=== PATIENT | female | born 1985 | race Hispanic/Latino ===

== ENCOUNTER 2017-05-12 14:50 | Emergency (ER) | payer SELFPAY ==
[2017-05-12 16:45] LABS: WBC/HPF 21-50 HPF (0-3)
[2017-05-12 16:46] LABS: Bacteria/HPF 3+ HPF (None Seen)
== END 2017-05-12 18:07 | disposition home or self-care (01) ==
LOC: SCSER 14:50
DX: R82.71 Bacteriuria (principal); R10.31 Right lower quadrant pain; R10.32 Left lower quadrant pain
CPT/HCPCS: 81001; 81025; 87077; 87086; 87186; 99284

== ENCOUNTER 2017-10-20 08:20 | Outpatient (CLI) | payer OTHER ==
--- NOTE | 2017-10-20 10:49 | ULT ---
ABDOMINAL ULTRASOUND: Date: 10/20/17 HISTORY: Diffuse abdominal pain and nausea. FINDINGS: The liver demonstrates homogeneous echotexture without focal mass or intrahepatic ductal dilatation. No gallstones, gallbladder wall thickening, or pericholecystic fluid is seen. There is a small amount of sludge in the gallbladder. The tail of the pancreas is obscured. The visualized portions of the p ancreas, aorta, and IVC are unremarkable. The spleen and pancreas are unremarkable. No free fluid is seen. IMPRESSION: Small amount of sludge in the gallbladder. POS: [facility]
== END 2017-10-20 08:21 | disposition home or self-care (01) ==
LOC: SCSULT 08:20
PROVIDERS: ATTEND Internal Medicine Gastroenterology
DX: R10.9 Unspecified abdominal pain (principal); K82.8 Other specified diseases of gallbladder
CPT/HCPCS: 76700

== ENCOUNTER 2018-01-19 18:16 | Emergency (ER) | payer OTHER ==
[2018-01-19 19:14] LABS: #Basophils 0.1 thou/uL (0.0-0.2); #Eosinphils 0.1 thou/uL (0.0-0.7); #Lymphocytes 1.9 thou/uL (1.20-3.40); #Monocytes 0.3 thou/uL (0.11-0.59); #Neutrophils 3.1 thou/uL (1.40-6.50); %Eosinophils 2.7 % (0.0-10.0); %Lymphocytes 35.1 % (21.0-51.0); %Monocytes 4.9 % (0.0-10.0); %Neutrophils 56.2 % (42.0-75.0); Mean Corpuscular HGB CONC 34.6 g/dL (32.0-36.0); Mean Corpuscular Volume 89.8 fL (78.0-98.0); Mean Platelet Volume 7.4 fL (7.4-10.4); Platelet Count 238 thou/uL (130-400); RBC Distribution Width 10.9 % (11.5-14.5); White Blood Cell (WBC) Count 5.5 thou/uL (4.8-10.8)
[2018-01-19 19:18] LABS: Bilirubin Negative (Negative); Blood, Urine Negative (Negative); Clarity Clear (Clear); Glucose, Urine (Dipstick) Negative (Negative); Leukocyte Negative (Negative); Nitrite Negative (Negative); Pregnancy Test - Urine (BHCG) Negative (Negative); Pregu Control Background? CLEAR/WHITE (CLR/WHITE); Pregu Control Bar Appear? YES (CONTROL BAR); Protein, Urine (Dipstick) Negative (Neg-Trace); Urobilinogen 0.2 mg/dL (0.2-1.0); pH, Urine 7.5 (5.0-9.0)
[2018-01-19 19:32] LABS: ALT (SGPT) 12 U/L (8-55); AST (SGOT) 20 U/L (5-34); Albumin 4.4 g/dL (3.5-5.0); Alkaline Phosphatase 46 U/L (40-150); Anion Gap 13 mmol/L (10-20); BUN (Urea Nitrogen) 12 mg/dL (7.0-18.7); Bilirubin, Direct 0.2 mg/dL (0.1-0.3); Bilirubin, Total 0.5 mg/dL (0.2-1.2); Calc. Creatinine Clearance 0 mL/min (70-130); Calcium 9.4 mg/dL (7.8-10.44); Carbon Dioxide 27 mmol/L (22-29); Chloride 104 mmol/L (98-107); Estimated GFR-MDRD Greater than 90; Glucose 88 mg/dL (70-105); Lipase 21 U/L (8-78); Protein, Total 7.7 g/dL (6.0-8.3); Sodium 140 mmol/L (136-145)
--- NOTE | 2018-01-19 20:40 | CT ---
CT ABDOMEN AND PELVIS WITH IV CONTRAST 01/19/18 HISTORY: Abdominal pain. FINDINGS: Comparison is made with exam of 08/30/10. The lung bases are clear. No free air, free fluid or lymphadenopathy is seen in the abdomen or pelvis . No calcified gallstones are identified. There is a 7 mm low density lesion in the anteromedial aspe ct of the dome of the liver. Another 5 mm focal low density is seen in the right lobe of the liver. Statistically these lesions are likely benign. The spleen, pancreas, adrenal glands and kidneys are n ormal. The uterus and ovaries are present. A normal appearing appendix is noted. No acute osseous abn ormalities are seen. There is fecal material in the colon. A small hiatal hernia is present. IMPRESSION: No CT evidence of acute process. POS: [facility]
== END 2018-01-19 20:30 | disposition home or self-care (01) ==
LOC: SCSER 18:16
DX: R10.31 Right lower quadrant pain (principal)
CPT/HCPCS: 74177; 80048; 80076; 81003; 81025; 83690; 85025; 96360

== ENCOUNTER 2018-04-07 09:25 | Day surgery (SDC) | payer OTHER ==
[2018-04-06 16:43] VITALS: BMI 30.2
[2018-04-07] MEDS ORDERED: Lidocaine 1% PF 5 ML VIAL ONE (17:00)
[2018-04-07] MEDS ORDERED: PROPOFOL 200 MG/20 ML VIAL ONE (17:00)
--- NOTE | 2018-04-07 23:03 | OP ---
DATE OF SURGERY: 04/07/2018 OPERATIVE PROCEDURE: Esophagogastroduodenoscopy with biopsy. PREOPERATIVE DIAGNOSES: Abdominal pain and nausea. POSTOPERATIVE DIAGNOSIS: Normal esophagogastroduodenoscopy. PROCEDURE NOTE: The patient was placed on her left lateral position and was given sedation by Anesthesia Department. A Pentax videogastroscope under direct vision passed down the oropharynx, past the GE junction, into the stomach , and subsequently, into descending duodenum. The vocal cords appeared healthy. The esophageal mucosa appeared normal throughout the esophagus. The GE junction, no lesions seen. The fundus, cardia, gastric body, gastric antrum , pyloric channel, no pathology seen. The duodenal bulb, descending duodenum, no pathology seen. The stomach was decompressed and scope removed. DISCHARGE PLANNING: This is a 32-year-old [place] female who came in for an EGD for abdominal pain, nausea, etc. The patient had abdominal sonogram few months ago, which revealed a small amount of biliary sludge. The EGD showed no pathology. DISCHARGE RECOMMENDATIONS: 1. Trial of Bentyl 10 mg twice daily.. 2. The patient will be referred to General Surgery for an opinion about whether she needs a cholecystectomy, because of biliary sludge. [facility]
== END 2018-04-07 11:52 | disposition home or self-care (01) ==
LOC: SDC 09:25
PROVIDERS: ATTEND Internal Medicine Gastroenterology
PROC: 0DJ08ZZ Inspection of Upper Intestinal Tract, Via Natural or Artificial Opening Endoscopic (ICD-10-PCS; principal; 2018-04-07)
DX: R10.9 Unspecified abdominal pain (principal); R11.0 Nausea; K83.8 Other specified diseases of biliary tract; Z79.899 Other long term (current) drug therapy
CPT/HCPCS: J2001; J2704

== ENCOUNTER 2018-05-18 13:45 | Outpatient (CLI) | payer OTHER ==
[2018-05-18 14:30] LABS: #Eosinphils 0.2 thou/uL (0.0-0.7); #Lymphocytes 1.3 thou/uL (1.20-3.40); #Monocytes 0.3 thou/uL (0.11-0.59); #Neutrophils 4.6 thou/uL (1.40-6.50); %Basophils 0.5 % (0.0-1.0); %Eosinophils 2.4 % (0.0-10.0); %Lymphocytes 20.3 % (21.0-51.0); %Monocytes 4.6 % (0.0-10.0); %Neutrophils 72.2 % (42.0-75.0); Hemoglobin 12.8 g/dL (12.0-16.0); Mean Corpuscular HGB CONC 34.3 g/dL (32.0-36.0); Mean Corpuscular Volume 93.2 fL (78.0-98.0); Mean Platelet Volume 7.6 fL (7.4-10.4); Platelet Count 265 thou/uL (130-400); RBC Distribution Width 10.9 % (11.5-14.5); Red Blood Cell (RBC) Count 3.98 mill/uL (4.20-5.40); White Blood Cell (WBC) Count 6.3 thou/uL (4.8-10.8)
[2018-05-18 14:37] LABS: BHCG - Serum Negative (NEGATIVE); Pregs Control Background? CLEAR/WHITE (CLR/WHITE); Pregs Control Bar Appear? YES (CONTROL BAR)
[2018-05-18 14:56] LABS: ALT (SGPT) 9 U/L (8-55); AST (SGOT) 17 U/L (5-34); Alkaline Phosphatase 56 U/L (40-150); Anion Gap 10 mmol/L (10-20); BUN (Urea Nitrogen) 16 mg/dL (7.0-18.7); Bilirubin, Direct 0.2 mg/dL (0.1-0.3); Bilirubin, Total 0.4 mg/dL (0.2-1.2); Calc. Creatinine Clearance 0 mL/min (70-130); Calcium 8.9 mg/dL (7.8-10.44); Carbon Dioxide 24 mmol/L (22-29); Chloride 107 mmol/L (98-107); Estimated GFR-MDRD Greater than 90; Globulin 2.9 g/dL (2.4-3.5); Glucose 92 mg/dL (70-105); Potassium 3.9 mmol/L (3.5-5.1); Protein, Total 6.9 g/dL (6.0-8.3); Sodium 137 mmol/L (136-145)
== END 2018-05-18 13:46 | disposition home or self-care (01) ==
LOC: LABBT 13:45
PROVIDERS: ATTEND Surgery
DX: Z01.812 Encounter for preprocedural laboratory examination (principal); K81.1 Chronic cholecystitis
CPT/HCPCS: 80053; 80076; 84703; 85025

== ENCOUNTER 2018-05-20 05:57 | Day surgery (SDC) | payer OTHER ==
[2018-05-18 14:29] VITALS: BMI 28.3
[2018-05-20] MEDS ORDERED: cefOXitin 2 GM in Sodium Chloride 0.9% 100 ML IVPB SCH (06:30)
[2018-05-20] MEDS ORDERED: Bupivacaine/Epinephrine 0.25% 30 ML VIAL ONE (06:41)
[2018-05-20] MEDS ORDERED: Midazolam HCl 2 mg/2 ml Vial ONE (06:56)
[2018-05-20] MEDS ORDERED: CEFAZOLIN 2 GM/50 ML BAG ONE (06:56)
[2018-05-20] MEDS ORDERED: Scopolamine 1.5 mg/72 hour Patch ONE (07:05)
[2018-05-20] MEDS ORDERED: Fentanyl 100 MCG/2 ML VIAL ONE ×4 (07:19→09:09)
[2018-05-20] MEDS ORDERED: Promethazine HCl 25 MG/ML VIAL ONE (08:31)
[2018-05-20] MEDS ORDERED: SUGAMMADEX SODIUM 500 MG/5 ML VIAL ONE (08:37)
[2018-05-20] MEDS ORDERED: HYDROcodone/Acetaminophen 5/325 mg Tablet ONE (10:20)
[2018-05-20] MEDS ORDERED: Morphine 2 MG/ML SYRINGE ONE (10:35)
[2018-05-20] MEDS ORDERED: Ondansetron PF 4 MG/2 ML Vial ONE (11:05)
[2018-05-20] MEDS ORDERED: Lidocaine 1% PF 5 ML VIAL ONE (11:05)
[2018-05-20] MEDS ORDERED: Dexamethasone 20 MG/5 ML VIAL ONE (11:05)
[2018-05-20] MEDS ORDERED: Metoclopramide HCl 10 MG/2 ML VIAL ONE (11:05)
[2018-05-20] MEDS ORDERED: Ketorolac Tromethamine 30 MG/ML VIAL ONE (11:05)
[2018-05-20] MEDS ORDERED: PROPOFOL 200 MG/20 ML VIAL ONE (11:05)
[2018-05-20] MEDS ORDERED: Glycopyrrolate 0.2 MG/ML 5 ML SYRINGE ONE (11:05)
--- NOTE | 2018-05-20 14:47 | OP ---
DATE OF PROCEDURE: 05/20/2018 PREOPERATIVE DIAGNOSIS: Chronic cholecystitis. PROCEDURE PERFORMED: Laparoscopic cholecystectomy. INDICATIONS FOR PROCEDURE: This is a 32-year-old female, who has been having severe episodic right upper quadrant pain radiating to back, worse after eating. She had an extensive Gastroenterology workup that was negative. FINDINGS: She had a very long small caliber cystic duct. DESCRIPTION OF PROCEDURE: After informed consent was obtained, the patient was taken to the operating room, given general endotracheal anesthesia, and placed in the supine position. Abdomen was prepped and draped in the usual fashion. Local anesthesia was infiltrated subcutaneously and deep, and a subumbilical incision was performed. Subcu was divided sharply, the fascia was grasped, and 2 stay sutures of 0 Vicryl were placed midline. Midline incised. Digital palpation revealed no local adhesions. A blunt 10 to 12 mm trocar inserted. Pneumoperitoneum was carried to a pressure of 15 mmHg. A 0-degree laparoscope was inserted under direct vision. Three 5-mm ports were placed subcostally. Gallbladder grasped, advanced superiorly, peritoneum lysed distally to expose the cystic duct and cystic artery in critical view. The duct and artery were triply ligated and divided. The gallbladder was removed and utilizing electrocautery, removed from the abdomen through the umbilical port. Hemostasis assured. Trocars and retractors were removed. Fascia was closed with interrupted 0 Vicryl suture. The skin was closed with interrupted 4-0 Rapide. Dermabond was applied. The patient tolerated the procedure well and transferred to Recovery in good condition. Sponge and needle counts were verified and correct x2. Job ID: [id number]
== END 2018-05-20 11:20 | disposition home or self-care (01) ==
LOC: SDC 05:57
PROVIDERS: ATTEND Surgery
PROC: 0FT44ZZ Resection of Gallbladder, Percutaneous Endoscopic Approach (ICD-10-PCS; principal; 2018-05-20)
DX: K81.1 Chronic cholecystitis (principal); Z79.899 Other long term (current) drug therapy
CPT/HCPCS: 88304; 96374; 96375; 96376; J0694; J1100; J1885; J2001; J2250; J2270; J2405; J2550; J2704; J2765; J3010; J7050

== ENCOUNTER 2021-04-30 10:08 | Emergency (ER) | payer OTHER ==
[2021-04-30] MEDS ORDERED: Iopamidol-370 76% 500 ML 1 ML ONE (10:32)
[2021-04-30 11:04] LABS: #Eosinphils 0.1 thou/uL (0.0-0.7); #Lymphocytes 1.7 thou/uL (1.20-3.40); #Monocytes 0.3 thou/uL (0.11-0.59); #Neutrophils 2.8 thou/uL (1.40-6.50); %Eosinophils 2.6 % (0.0-10.0); %Lymphocytes 34.5 % (21.0-51.0); %Monocytes 6.7 % (0.0-10.0); %Neutrophils 56.2 % (42.0-75.0); Hemoglobin 13.9 g/dL (12.0-16.0); Mean Corpuscular Hemoglobin 32.1 pg (27.0-31.0); Mean Corpuscular Volume 94.2 fL (78.0-98.0); Mean Platelet Volume 7.4 fL (7.4-10.4); Platelet Count 270 thou/uL (130-400); RBC Distribution Width 11.2 % (11.5-14.5); Red Blood Cell (RBC) Count 4.34 mill/uL (4.20-5.40)
[2021-04-30] MEDS ORDERED: Ondansetron PF 4 MG/2 ML Vial ONE (11:08)
[2021-04-30] MEDS ORDERED: Ketorolac Tromethamine 30 MG/ML VIAL ONE (11:08)
[2021-04-30 11:17] LABS: BHCG - Serum Negative (NEGATIVE); Pregs Control Background? CLEAR/WHITE (CLR/WHITE); Pregs Control Bar Appear? YES (CONTROL BAR)
[2021-04-30 11:34] LABS: Bilirubin Negative (Negative); Blood, Urine Negative (Negative); Clarity Clear (Clear); Glucose, Urine (Dipstick) Normal (Negative); Ketone, Urine Negative (Negative); Leukocyte Negative Leu/uL (Negative); Nitrite Negative (Negative); Protein, Urine (Dipstick) Negative (Neg-Trace); Urobilinogen Normal mg/dL (Less than 2)
[2021-04-30 12:02] LABS: ALT (SGPT) 12 U/L (8-55); AST (SGOT) 20 U/L (5-34); Albumin 4.2 g/dL (3.5-5.0); Alkaline Phosphatase 56 U/L (40-110); Anion Gap 14 mmol/L (10-20); BUN (Urea Nitrogen) 13 mg/dL (7.0-18.7); Bilirubin, Total 0.5 mg/dL (0.2-1.2); CK (CPK) 54 U/L (29-168); Calc. Creatinine Clearance 0 mL/min (70-130); Calcium 9.1 mg/dL (7.8-10.44); Carbon Dioxide 21 mmol/L (22-29); Chloride 104 mmol/L (98-107); Globulin 3.4 g/dL (2.4-3.5); Glucose 85 mg/dL (70-105); Lipase 19 U/L (8-78); Potassium 4.3 mmol/L (3.5-5.1); Protein, Total 7.6 g/dL (6.0-8.3); Sodium 135 mmol/L (136-145)
== END 2021-04-30 12:30 | disposition home or self-care (01) ==
LOC: ERS 10:08
DX: R10.9 Unspecified abdominal pain (principal)
CPT/HCPCS: 74177; 80053; 81003; 82550; 83690; 84703; 85025; 96374; 96375; J1885; J2405; Q9967